=== PATIENT | female | born 1935 | race Caucasian/White ===

== ENCOUNTER → 2019-09-23 11:13 | Outpatient (BNVA) | payer MEDICARE, OTHER, SELFPAY | PROVIDERS: Family Provider Family Medicine; PCP Family Medicine; Visit Provider Family Medicine | DX: I10 Essential (primary) hypertension (principal); J30.9 Allergic rhinitis, unspecified | CPT/HCPCS: 36415; 80053 ==

== ENCOUNTER → 2020-04-28 11:00 | Outpatient (BNVA) | payer MEDICARE, OTHER, SELFPAY | PROVIDERS: Family Provider Family Medicine; PCP Family Medicine; Visit Provider Family Medicine | DX: I10 Essential (primary) hypertension (principal) | CPT/HCPCS: 80053; 80061; 82043; 85025; 87086 ==

== ENCOUNTER → 2020-06-28 11:45 | Outpatient (BNVA) | payer MEDICARE, OTHER, SELFPAY | PROVIDERS: Family Provider Family Medicine; PCP Family Medicine; Visit Provider Nurse Practitioner Family | DX: Z20.828 Contact with and (suspected) exposure to other viral communicable diseases (principal) | CPT/HCPCS: 87635 ==

== ENCOUNTER → 2020-11-23 09:15 | Outpatient (BNVA) | payer MEDICARE, OTHER, SELFPAY | PROVIDERS: Family Provider Family Medicine; PCP Family Medicine; Visit Provider Family Medicine | DX: I10 Essential (primary) hypertension (principal); J30.2 Other seasonal allergic rhinitis | CPT/HCPCS: 80053; 80061; 84443; 85025 ==

== ENCOUNTER → 2021-06-07 09:47 | Outpatient (BNVA) | payer MEDICARE, OTHER, SELFPAY | PROVIDERS: Family Provider Family Medicine; PCP Family Medicine; Visit Provider Nurse Practitioner Family | DX: I11.0 Hypertensive heart disease with heart failure (principal); I50.30 Unspecified diastolic (congestive) heart failure | CPT/HCPCS: 80053; 80061; 85025 ==

== ENCOUNTER → 2021-10-18 00:01 | Outpatient (BNVA) | payer MEDICARE, OTHER, SELFPAY | PROVIDERS: Family Provider Family Medicine; PCP Family Medicine; Visit Provider Nurse Practitioner Family | DX: Z20.822 Contact with and (suspected) exposure to COVID-19 (principal) | CPT/HCPCS: 87635 ==

== ENCOUNTER → 2021-12-19 09:06 | Outpatient (BNVA) | payer MEDICARE, OTHER, SELFPAY | PROVIDERS: Family Provider Family Medicine; PCP Family Medicine; Visit Provider Nurse Practitioner Family | DX: E53.9 Vitamin B deficiency, unspecified (principal); I50.30 Unspecified diastolic (congestive) heart failure; E55.9 Vitamin D deficiency, unspecified; I11.0 Hypertensive heart disease with heart failure | CPT/HCPCS: 80053; 82306; 82607 ==

== ENCOUNTER 2022-04-22 04:31 | Emergency (ER) | payer MEDICARE, OTHER, SELFPAY ==
[2022-04-22 04:43] VITALS: BP 173/79; PULSE 74; RESP 18; TEMP 37; O2SAT 96; BMI 25.8
[2022-04-22 04:48] VITALS: O2SAT 95
--- NOTE | 2022-04-22 04:52 | ECG_ITS ---
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 Measurements Intervals [place] Rate: 65 P: 71 DC: 225 QRS: -16 QRSD: 88 T: 56 QT: 390 QTc: 407 Interpretive Statements SINUS RHYTHM WITH FIRST DEGREE AV BLOCK POSSIBLE RIGHT VENTRICULAR CONDUCTION DELAY [RSR (QR) IN V1/V2] Compared to ECG 03/02/2016 12:28:32 No significant changes Electronically Signed On 04-22-2022 13:03:59 CDT by Kylah Cotto M.D. [email or web address] [facility] hospitalAvrio Solutions Company Limitedst[facility] [place] [id number] f
[2022-04-22 05:11] LABS: Basophils # 0.1 10^3/uL (0.0-0.1); Basophils % 0.6 %; Eosinophils # 0.3 10^3/uL (0.0-0.8); Eosinophils % 3.2 %; Hematocrit 38.8 % (37.0-47.0); Hemoglobin 12.8 g/dL (11.5-15.3); Lymphocytes # 2.4 10^3/uL (0.8-4.8); Lymphocytes % 29.9 %; Mean Corpuscular Hemoglobin 31.5 pg (28.0-34.0); Mean Corpuscular Volume 95.6 fl (81-99); Mean Platelet Volume 10.2 fL (7.4-10.4); Monocytes # 0.8 10^3/uL (0.2-0.9); Monocytes % 9.5 %; Neutrophils # 4.54 10^3/uL (1.8-7.7); Neutrophils % 56.6 %; Nucleated Red Blood Cells % 0 %; Platelet Count 277 10^3/cmm (130-400); Red Blood Count 4.06 10^6/uL (4.1-5.3); Red Cell Distribution Width 12.6 % (12.1-15.1)
[2022-04-22 05:15] VITALS: BP 132/72; PULSE 69; RESP 21; O2SAT 95
[2022-04-22 05:34] VITALS: BP 128/66; PULSE 73; RESP 17; O2SAT 94
[2022-04-22 05:45] VITALS: BP 140/67; PULSE 59; RESP 18; O2SAT 96
[2022-04-22 06:00] VITALS: BP 134/72; PULSE 60; RESP 21; O2SAT 92
--- NOTE | 2022-04-22 06:18 | XRR_ITS ---
PROCEDURE INFORMATION: Exam: XR Chest Exam date and time: 04/22/2022 6:21 AM Age: 86 years old Clinical indication: Pain; Chest pressure; Additional info: Chest pain TECHNIQUE: Imaging protocol: Radiologic exam of the chest. Views: 1 view. COMPARISON: CR Chest 1 [place] [id number] 01/24/2019 8:06 PM FINDINGS: Lungs: There are normal lung volumes without interstitial or airspace opacities. Pleural spaces: There are no pleural effusions or pneumothorax. Heart/Mediastinum: The heart size is normal. There is a mildly tortuous thoracic aorta. The trachea is in the midline. Bones/joints: No acute abnormalities. Mild shoulder degenerative changes are seen. Post kyphoplasty changes of a midthoracic vertebral body are seen. Soft tissues: Multiple external densities are seen overlying the chest, limiting assessment. XR/XR chest 1V portable [id number] IMPRESSION: No chest radiographic evidence of acute cardiopulmonary disease.
--- NOTE | 2022-04-22 06:20 | ED_ITS ---
HPI - Arrhythmia/Palpitations General: Chief Complaint: Arrhythmia/Palpitations Stated Complaint: FAST HEART RATE Time Seen by Provider: 04/22/22 06:06 History of Present Illness: 86-year-old female presenting with chest pain and palpitations. Patient notes that she awoke from sleep. Because her hands were hurting her. She put on some cream. And started to feel like her heart rate was racing. She took her blood pressure noted to be systolic in the 180s. This started to cause chest pain. Pain was nonradiating. Associate with some nausea without vomiting. No prior history of heart disease. She took some nitroglycerin she had had which she had never taken. And stated the pain was not improving. Prompting her to come into the ED. Pain has resolved completely before arrival. She denies new pain or swelling her lower extremities. She denies history of blood clots. Denies recent travel recent surgeries. She denies dysuria or polyuria. She denies abdominal pain. She denies shortness of breath. She denies fevers, chills, cough. She does have a history of al lergies. Review of Systems General: Reports: 10 or more systems reviewed and unremarkable except in HPI and below PFSH ED PFSH: Medical History Benign essential HTN Diastolic CHF Non-rheumatic mitral regurgitation Spondylolisthesis, lumbar region Surgical History H/O bilateral oophorectomy H/O colectomy H/O: hysterectomy History of appendectomy History of cholecystectomy History of tonsillectomy and adenoidectomy Family History Mother CAD (coronary artery disease) Diabetes Father CAD (coronary artery disease) Brother Diabetes Other Stroke Social History Smoking and tobacco status: never smoked Alcohol intake: never Physical Exam Const: COMMON NORMALS: no acute distress, patient oriented x3 and alert GENERAL APPEARANCE: cooperative ORIENTATION/CONSCIOUSNESS: Yes awake, Yes oriented to person, Yes oriented to place and Yes oriented to time HENMT: COMMON NORMALS: normocephalic, atraumatic, external ears normal, Normal external nose present and moist oral mucous membranes HEAD & SCALP: normal to inspection, normocephalic and atraumatic NOSE: Normal external nose present GENERAL EAR: hearing grossly impaired EXTERNAL EAR: Yes external ears normal Eye: COMMON NORMALS: Equal, round and reactive pupils present, EOMs intact bilaterally, conjunctivae normal and no scleral icterus GENERAL EYE: appearance normal, both eyes and all related structures EYELID: eyelids normal CONJUNCTIVA: Yes conjunctivae normal SCLERA: sclerae normal PUPIL: Yes Equal, round and reactive pupils present Neck/C-Spine: COMMON NORMALS: full ROM, supple and no JVD GENERAL: Yes normal visual inspection Lymph: LYMPHATIC: no lymphadenopathy noted and no lymphedema noted Chest: COMMONS NORMALS: normal inspection of the chest Resp: COMMON NORMALS: normal respiratory effort, No retractions and No use of accessory muscles Cardio: COMMON NORMALS: no JVD, regular rate and regular rhythm RATE: regular rate RHYTHM: regular rhythm GI: COMMON NORMALS: Normal to inspection, nondistended, normoactive bowel sounds present : COMMON NORMALS: Yes no CVA tenderness BLADDER/KIDNEY EXAM: Yes no CVA tenderness Back/Pelvis: COMMON NORMALS: no CVA tenderness and thoracic and lumbar spine normal to inspection Extremity: COMMON NORMALS: normal to inspection, full ROM and capillary refill normal GENERAL: Yes normal exam except as noted Neuro: COMMON NORMALS: patient oriented x3, CN's II-XII intact bilaterally, moves all extremities, no focal motor deficits, no sensory deficits noted and gait normal SENSORIUM/ORIENTATION: Yes alert, Yes oriented to person, Yes oriented to place and Yes oriented to time Psych: COMMON NORMALS: mental status grossly normal, Normal thought process present, cooperative and normal affect THOUGHT PROCESS: Normal thought pr ocess present Skin: COMMON NORMALS: no rashes or lesions noted and no wounds GENERAL SKIN EXAM: no rashes or lesions noted Course Vital Signs: Vital signs: Vital Signs Temperature 98.6 F 04/22/22 04:43 Pulse Rate 60 04/22/22 06:00 Respiratory Rate 21 H 04/22/22 06:00 Blood Pressure 134/72 04/22/22 06:00 Pulse Oximetry 92 04/22/22 06:00 Oxygen Delivery Me thod 04/22/22 05:34 MDM - Arrhythmia/Palpitations Medical Decision Making 86-year-old female presenting today with left-sided chest pain. Vital signs slightly elevated blood pressure otherwise within normal limits. EKG without significant evidence of life-threatening arrhythmia, ST wave changes to suggest ischemia. Medical Records 86-year-old female presenting today with palpitations, elevated blood pressure. EKG initially without evidence of ischemic ischemic changes. Repeat EKG without ischemic changes. Troponin x2 without changes. Chest x-ray is unremarkable. CBC is unremarkable. CMP is unremarkable. Patient was given strict return precautions and recommended routine outpatient follow-up. Lab Data : 04/22/22 05:02 04/22/22 06:16 Radiology Impressions Chest X-Ray 04/22/22 06:18 IMPRESSION: No chest radiographic evidence of acute cardiopulmonary disease. Laboratory Results WBC 8.0 10^3/uL (4.0-10.0) 04/22/22 05:02 RBC 4.06 10^6/uL (4.1-5.3) L 04/22/22 05:02 Hgb 12.8 g/dL (11.5-15.3) 04/22/22 05:02 Hct 38.8 % (37.0-47.0) 04/22/22 05:02 MCV 95.6 fl (81-99) 04/22/22 05:02 MCH 31.5 pg (28.0-34.0) 04/22/22 05:02 MCHC 33.0 g/dL (30.0-36.0) 04/22/22 05:02 RDW 12.6 % (12.1-15.1) 04/22/22 05:02 Plt Count 277 10^3/cmm (130-400) 04/22/22 05:02 MPV 10.2 fL (7.4-10.4) 04/22/22 05:02 Neut % (Auto) 56.6 % 04/22/22 05:02 Lymph % (Auto) 29.9 % 04/22/22 05:02 [place] % (Auto) 9.5 % 04/22/22 05:02 Eos % (Auto) 3.2 % 04/22/22 05:02 Baso % (Auto) 0.6 % 04/22/22 05:02 Neut # (Auto) 4.54 10^3/uL (1.8-7.7) 04/22/22 05:02 Lymph # (Auto) 2.4 10^3/uL (0.8-4.8) 04/22/22 05:02 [place] # (Auto) 0.8 10^3/uL (0.2-0.9) 04/22/22 05:02 Eos # (Auto) 0.3 10^3/uL (0.0-0.8) 04/22/22 05:02 Baso # (Auto) 0.1 10^3/uL (0.0-0.1) 04/22/22 05:02 Nucleated RBC % (auto) 0 % 04/22/22 05:02 Nucleated RBCs # 0.0 /100WBC 04/22/22 05:02 PT 13.20 SECONDS (12.1-14.9) 04/22/22 06:16 INR 0.97 (0.8-1.2) 04/22/22 06:16 APTT 28.1 SECONDS (23.9-36.7) 04/22/22 06:16 Sodium 140 mmol/L (136-145) 04/22/22 06:16 Potassium 3.9 mmol/L (3.5-5.1) 04/22/22 06:16 Chloride 107 mmol/L (98-107) 04/22/22 06:16 Carbon Dioxide 22 mmol/L (22-29) 04/22/22 06:16 Anion Gap 14.9 (5-19) 04/22/22 06:16 BUN 12 mg/dL (8-23) 04/22/22 06:16 Creatinine 0.5 mg/dL (0.5-0.9) 04/22/22 06:16 GFR Calculation Not Reportable 04/22/22 06:16 Glucose 100 mg/dL (65-115) 04/22/22 06:16 Calculated Osmolality 290 mOsm/kg (285-295) 04/22/22 06:16 Calcium 8.8 mg/dL (8.5-10.5) 04/22/22 06:16 Total Bilirubin 0.5 mg/dL (0.15-1.2) 04/22/22 06:16 AST 17 U/L (0-32) 04/22/22 06:16 ALT 13 U/L (0-33) 04/22/22 06:16 Alkaline Phosphatase 59 U/L (35-105) 04/22/22 06:16 Troponin T Baseline 16 ng/L (0-10) H 04/22/22 06:16 Troponin T 120 Minute 14.95 ng/L (0-10) H 04/22/22 07:21 Delta Troponin T -1.05 ABS# (0-10) L 04/22/22 07:21 Total Protein 6.0 g/dL (6.6-8.7) L 04/22/22 06:16 Albumin 3.7 g/dL (3.5-5.2) 04/22/22 06:16 Globulin 2.3 g/dL (1.3-4.6) 04/22/22 06:16 Discharge Plan Discharge Patient Disposition: Home Clinical Impression: Palpitations Condition: Stable Prescriptions: No Action calcium carb-mag oxide-zinc ox 334-134-5 mg tablet 1 tab PO DAILY nitroglycerin [Nitrostat] 0.4 mg tablet, sublingual 0.4 mg SUBLINGUAL Q5M PRN (Reason: chest pain) Qty: 45 0RF amlodipine 5 mg tablet See Rx Instructions .ROUTE .COMPLEX Qty: 90 1RF Dose Instruction: TAKE ONE TABLET BY MOUTH ONCE DAILY Rx Instructions: TAKE ONE TABLET BY MOUTH ONCE DAILY acetaminophen [Tylenol Extra Strength] 500 mg tablet 500 mg PO BID 90 Days Qty: 180 0RF aspirin 81 mg tablet,delayed release (DR/EC) 81 mg PO DAILY 90 Days Qty: 90 1RF cetirizine 10 mg capsule 10 mg PO DAILY 90 Days Qty: 90 1RF cholecalciferol (vitamin D3) 50 mcg (2,000 unit) tablet 2,000 unit PO DAILY 90 Days Qty: 90 1RF fluticasone propionate [Children's Flonase Allergy Rlf] 50 mcg/actuation spray,suspension 2 spray INTRANASAL BID Qty: 18.2 3RF losartan 100 mg tablet 100 mg PO DAILY Qty: 90 1RF montelukast 10 mg tablet See Rx Instructions .ROUTE .COMPLEX Qty: 90 1RF Dose Instruction: TAKE ONE TABLET BY MOUTH DAILY Rx Instructions: TAKE ONE TABLET BY MOUTH DAILY polyethylene glycol 3350 [Miralax] 17 gram/dose powder 17 g PO DAILY 90 Days Qty: 850 1RF pyridoxine (vitamin B6) 100 mg tablet 50 mg PO DAILY 90 Days Qty: 90 0RF carvedilol 6.25 mg tablet See Rx Instructions .ROUTE .COMPLEX Qty: 180 1RF Dose Instruction: TAKE ONE TABLET BY MOUTH TWICE DAILY Rx Instructions: TAKE ONE TABLET BY MOUTH TWICE DAILY Discharge Orders: Discharge ED (Routine); Ordered 04/22/22 Ordered By: Kirt Wayne Referrals: Mer Bah MD [Primary Care Provider] - Patient Instructions: Opioid Safety Coding Level of Care Code ED Buggy Ladle Tender for Chg Fwd Exam Comprehensive
[2022-04-22 06:43] LABS: INR 0.97 (0.8-1.2)
[2022-04-22 06:44] LABS: Partial Thromboplastin Time 28.1 SECONDS (23.9-36.7)
[2022-04-22 06:50] LABS: Alanine Aminotransferase 13 U/L (0-33); Albumin Level 3.7 g/dL (3.5-5.2); Alkaline Phosphatase 59 U/L (35-105); Anion Gap 14.9 (5-19); Aspartate Amino Transferase 17 U/L (0-32); Blood Urea Nitrogen 12 mg/dL (8-23); Calcium 8.8 mg/dL (8.5-10.5); Carbon Dioxide 22 mmol/L (22-29); Chloride 107 mmol/L (98-107); Globulin 2.3 g/dL (1.3-4.6); Glucose 100 mg/dL (65-115); Osmolality Calculated 290 mOsm/kg (285-295); Potassium 3.9 mmol/L (3.5-5.1); Sodium 140 mmol/L (136-145); Total Bilirubin 0.5 mg/dL (0.15-1.2)
[2022-04-22 06:51] LABS: Troponin(5th) Baseline 16 ng/L (0-10)
--- NOTE | 2022-04-22 07:08 | PC.NURSE ---
report given to marii major
[2022-04-22 07:42] LABS: Troponin 5 2HR 14.95 ng/L (0-10)
--- NOTE | 2022-04-22 07:42 | ECG_ITS ---
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 Measurements Intervals [place] Rate: 62 P: 124 FL: 232 QRS: 225 QRSD: 88 T: 127 QT: 407 QTc: 414 Interpretive Statements SINUS RHYTHM WITH FIRST DEGREE AV BLOCK ARM LEADS REVERSED [INVERTED P AND QRS IN I] Compared to ECG 04/22/2022 04:52:18 No significant changes Electronically Signed On 04-22-2022 13:12:04 CDT by Kylah Cotto M.D. [id number]
[2022-04-22 07:45] LABS: Troponin 5 2HR Delta -1.05 ABS# (0-10)
== END 2022-04-22 08:20 | disposition home or self-care (01) ==
PROVIDERS: Emergency Medicine; Emergency Provider Emergency Medicine; PCP Family Medicine
DX: R00.2 Palpitations (principal); Z79.82 Long term (current) use of aspirin; I11.0 Hypertensive heart disease with heart failure; I50.30 Unspecified diastolic (congestive) heart failure
CPT/HCPCS: 36415; 71045; 80053; 84484; 85025; 85610; 85730; 93005; 99285

== ENCOUNTER → 2022-06-18 15:36 | Outpatient (BNVA) | payer MEDICARE, OTHER, SELFPAY | PROVIDERS: PCP Family Medicine; Visit Provider Nurse Practitioner | DX: R05.9 Cough, unspecified (principal) | CPT/HCPCS: 85025; 87400; 87426 ==

== ENCOUNTER → 2023-03-12 10:08 | Outpatient (BNVA) | payer MEDICARE, OTHER, SELFPAY | PROVIDERS: PCP Family Medicine; Visit Provider Family Medicine | DX: I10 Essential (primary) hypertension (principal); J30.9 Allergic rhinitis, unspecified; E55.9 Vitamin D deficiency, unspecified; G56.03 Carpal tunnel syndrome, bilateral upper limbs | CPT/HCPCS: 80053; 80061; 82306; 84443; 85025 ==

== ENCOUNTER → 2024-03-12 16:57 | Outpatient (BNVA) | payer MEDICARE, OTHER, SELFPAY | PROVIDERS: PCP Family Medicine; Visit Provider Family Medicine | DX: I10 Essential (primary) hypertension (principal); E55.9 Vitamin D deficiency, unspecified; J30.9 Allergic rhinitis, unspecified; J30.2 Other seasonal allergic rhinitis | CPT/HCPCS: 80053; 80061; 82306; 84443; 85025 ==

== ENCOUNTER 2024-07-10 12:23 | Outpatient (CLI) | payer MEDICARE, OTHER, SELFPAY ==
--- NOTE | 2024-07-10 12:45 | USCV_ITS ---
Anisa Cardoso Age: 88 Gender: F : 1935 Exam Date: 07/10/2024 13:09 Ordering Phys: Iglesia Epstein Technologist: Paulo Donato [place] [facility] [place]: [place] BP: 130 / 72 HR: 49 Rhythm: Sinus Technical Quality: Adequate MEASUREMENTS (Male / Female) Normal Values 2D ECHO LV Diastolic Diameter PLAX 2.9 cm 4.2 - 5.9 / 3.9 - 5.3 cm IVS Diastolic Thickness 1.1 cm 0.6 - 1.0 / 0.6 - 0.9 cm IVS Systolic Thickness 1.4 cm LVPW Diastolic Thickness 1.4 cm 0.6 - 1.0 / 0.6 - 0.9 cm LVPW Systolic Thickness 1.4 cm LVOT Diameter 2.1 cm LV Ejection Fraction 2D Teich 69.8 % LV Ejection Fraction MOD 4C 67.0 % LV Ejection Fraction MOD 2C 60.4 % LV Ejection Fraction 2C AL 63.1 % LA Diameter 3.2 cm RA Systolic Volume 4C AL 32.5 ml RA Systolic Volume 4C MOD 30.3 ml LA Sys Volume AL 36.6 cm cubed LA Sys Volume Index AL 20.0 cm cubed/m squared Aorta at Sinotubular Diameter 2.6 cm IVC Diameter 1.9 cm M-MODE LA Ao Ratio MM 1.2 AV Cusp Separation MM 1.0 cm DOPPLER AV Peak Velocity 134.0 cm/s LVOT Peak Velocity 120.0 cm/s AV Area Cont Eq vti 3.5 cm squared AV Area Cont Eq pk 3.0 cm squared MV Peak Velocity 127.0 cm/s MV Area PHT 2.6 cm squared Mitral E to A Ratio 0.8 TV Peak Velocity 294.2 cm/s TR Peak Velocity 333.5 cm/s TR Peak Gradient 44.5 mmHg TR Mean Velocity 302.0 cm/s TR Mean Gradient 40.5 mmHg TR Velocity Time Integral 103.7 cm PV Peak Velocity 81.0 cm/s RV Ejection Time 0.4 s FINDINGS Left Ventricle Left ventricle is normal in size. LV systolic function is normal with EF of 60 to 65%. No regional wall motion abnormalities are seen. Grade 1 diastolic dysfunction. Right Ventricle Normal in size and function Right Atrium Normal in size Left Atrium Normal in size Mitral Valve Structurally normal mitral valve. Mild mitral regurgitation. Aortic Valve Aortic valve is thickened. No significant stenosis. Mild aortic regurgitation. Tricuspid Valve Mild tricuspid regurgitation. Pulmonary artery systolic pressure is normal Pulmonic Valve Mild pulmonic regurgitation. Pericardium Normal Aorta Normal in size IVC Appears to be normal CONCLUSIONS LV systolic function is normal with EF of 60-65% Grade 1 diatolic dysfunction Mild mitral regurgitation Mild aortic regurgitation Mild tricuspid regurgitation Mild pulmonic regurgitation Kevin Delgado MD (Electronically Signed) Final Date: 12 July 2024 14:33 S
== END 2024-07-10 12:24 | disposition home or self-care (01) ==
LOC: RAD 12:23
PROVIDERS: PCP Nurse Practitioner; Visit Provider Nurse Practitioner
DX: I50.30 Unspecified diastolic (congestive) heart failure (principal); I35.0 Nonrheumatic aortic (valve) stenosis; I10 Essential (primary) hypertension; R01.1 Cardiac murmur, unspecified
CPT/HCPCS: 93306

== ENCOUNTER → 2024-09-24 14:42 | Outpatient (BNVA) | payer MEDICARE, OTHER, SELFPAY | PROVIDERS: PCP Nurse Practitioner; Visit Provider Nurse Practitioner | DX: I10 Essential (primary) hypertension (principal); E55.9 Vitamin D deficiency, unspecified; I50.30 Unspecified diastolic (congestive) heart failure; J30.9 Allergic rhinitis, unspecified | CPT/HCPCS: 80053; 80061; 82306; 82607; 84443; 85025 ==